=== PATIENT | female | born 1940 | race Caucasian/White ===

== ENCOUNTER 2016-06-24 10:12 | Outpatient (CLI) | payer MEDICARE | END 2016-06-24 10:13 | disposition home or self-care (01) | LOC: NC 10:12 | PROVIDERS: ATTEND Internal Medicine | DX: R73.9 Hyperglycemia, unspecified (principal); Z71.3 Dietary counseling and surveillance; E66.3 Overweight; Z68.39 Body mass index [BMI] 39.0-39.9, adult; I10 Essential (primary) hypertension; K22.70 Barrett's esophagus without dysplasia; K57.30 Diverticulosis of large intestine without perforation or abscess without bleeding ==

== ENCOUNTER 2016-07-14 09:22 | Emergency (ER) | payer MEDICARE ==
[2016-07-14 10:17] LABS: ABSOLUTE NEUTROPHIL COUNT 4.7 K/mm3 (1.8-7.7); BASO # 0.1 K/mm3 (0.0-0.2); EOS # 0.1 (0.0-0.5); EOS % 1.1 % (0.9-2.9); HEMATOCRIT 39.9 % (37.0-47.0); HEMOGLOBIN 11.8 gm/l (12.0-16.0); IMM NEUT # 0.1 K/mm3 (0-0.2); IMM NEUT% 0.8 % (0-1); MEAN CELL VOLUME 79.8 fl (81.0-99.0); MEAN CORPUSCULAR HEMOGLOBIN 23.6 pg (27.0-31.0); MEAN CORPUSCULAR HGB CONC 29.6 g/dl (33.0-37.0); MEAN PLATELET VOLUME 9.1 fl (7.4-10.4); MONO # 0.4 (0.0-0.8); MONO % 6.5 % (4-12); NEUT % 74.6 % (43-75); PLATELET COUNT 276 K/mm3 (130-400); RED CELL DISTRIBUTION WIDTH 21.9 % (11.5-14.5)
[2016-07-14 11:59] LABS: ANISOCYTOSIS 2+; PLATELET ESTIMATE NORMAL (NORMAL)
== END 2016-07-14 10:50 | disposition home or self-care (01) ==
LOC: ED 09:22
DX: R10.9 Unspecified abdominal pain (principal); D64.9 Anemia, unspecified